=== PATIENT | male | born 1980 ===

== ENCOUNTER 2018-05-13 22:14 | Emergency (ER) | payer SELFPAY ==
[2018-05-13 22:35] VITALS: BP 152/98; PULSE 77; RESP 20; TEMP 97.4; O2SAT 99
--- NOTE | 2018-05-13 23:45 | C.PDOC ---
History Of Present Illness 37 year old male presents to the ED c/o left upper arm swelling, redness for the past 5 days. Patient reports he was bitten by a tick a week ago. Patient states he was cleaning the area with alcohol however reports redness has been worsening. Patient reports history of DM that is controlled only by diet. Patient denies fever, chills, nausea, vomiting, headache, dizziness, myalgias, weakness, numbness. Time Seen by Provider: 05/13/18 22:57 Chief Complaint (Nursing): Abnormal Skin Integrity History Per: Patient History/Exam Limitations: no limitations Onset/Duration Of Symptoms: Days (5) Current Symptoms Are (Timing): Still Present Location Of Injury: Left: Arm (upper) Quality Of Symptoms: Painful, Swollen Recent travel outside of the [place]: No Additional History Per: Patient Past Medical History Reviewed: Historical Data, Nursing Documentation, Vital Signs Vital Signs: Last Vital Signs Temp 97.4 F L 05/13/18 22:27 Pulse 77 05/13/18 22:27 Resp 20 05/13/18 22:27 BP 152/98 H 05/13/18 22:27 Pulse Ox 99 05/13/18 22:27 - Medical History PMH: Diabetes Surgical History: No Surg Hx Family History: States: Unknown Family Hx - Social History Hx Alcohol Use: No Hx Substance Use: No - Immunization History Hx Tetanus Toxoid Vaccination: No Hx Influenza Vaccination: No Hx Pneumococcal Vaccination: No Review Of Systems Constitutional: Negative for: Fever, Chills, Other (myalgias) Eyes: Negative for: Vision Change Cardiovascular: Negative for: Chest Pain, Palpitations Respiratory: Negative for: Cough, Shortness of Breath Gastrointestinal: Negative for: Nausea, Vomiting, Abdominal Pain Musculoskeletal: Positive for: Arm Pain Skin: Positive for: Rash Neurological: Negative for: Weakness, Numbness, Headache, Dizziness Physical Exam - Physical Exam Appears: Non-toxic, No Acute Distress Skin: Warm, Dry, Other (left upper arm, area of localized erythema with small puncture at the center. No fluctuance. No bull's eye rash) Head: Atraumatic, Normacephalic Eye(s): bilateral: Normal Inspection Oral Mucosa: Moist Tongue: No Swelling Lips: No Swelling Throat: Normal, No Erythema, No Exudate Neck: Normal ROM, Supple Chest: Symmetrical Cardiovascular: Rhythm Regular Respiratory: Normal Breath Sounds, No Rales, No Rhonchi, No Wheezing Extremity: Normal ROM Neurological/Psych: Oriented x3, Normal Speech, Normal Cognition Gait: Steady ED Course And Treatment O2 Sat by Pulse Oximetry: 99 (ON RA) Pulse Ox Interpretation: Normal Progress Note: Plan: - Doxycycline 100 mg PO. - Metformin 500 mg PO. Accucheck 445mg/dl.Patient refused to have SQ insulin prefers having PO meds. Metformin was given. Wound borders were marked and patient was strongly advised to follow up with PMD in 2 days for management of his BS and return in 2 days for wound check. Disposition Counseled Patient/Family Regarding: Diagnosis, Need For Followup, Rx Given - Disposition Referrals: [facility] [Outside] Disposition: HOME/ ROUTINE Disposition Time: 23:43 Condition: STABLE Additional Instructions: Please follow up with PMD on wednesday for further management of your blood glucose Return in ED in 2 days for wound check Take medications as directed Return to ER if worse Prescriptions: Doxycycline Hyclate 100 mg PO BID #20 capsule Metformin HCl [Glucophage Xr] 500 mg PO BID #20 [id number].er.[id number] Instructions: Cellulitis (Skin Infection), Adult (DC) Forms: [employer] ([place]ayan) - Clinical Impression Clinical Impression: Cellulitis of arm, left, Hyperglycemia - PA / RATINGS ANALYST / Resident Statement MD/DO has reviewed & agrees with the documentation as recorded. - Scribe Statement The provider has reviewed the documentation as recorded by the Scribe Vincent Carrington All medical record entries made by the Scribe were at my direction and personally dictated by me. I have reviewed the chart and agree that the record accurately reflects my personal performance of the history, physical exam, medical decision making, and the department course for this patient. I have also personally directed, reviewed, and agree with the discharge instructions and disposition.
== END 2018-05-14 00:03 | disposition home or self-care (01) ==
LOC: C.ER 22:14
DX: L03.114 Cellulitis of left upper limb (principal); E11.65 Type 2 diabetes mellitus with hyperglycemia